=== PATIENT | female | born 1975 ===

== ENCOUNTER 2021-11-14 11:16 | Emergency (ER) | payer SELFPAY ==
[2021-11-15 12:22] LABS: SARS-CoV-2 PCR by NAA Not Detected (NotDetected)
== END 2021-11-14 13:46 | disposition home or self-care (01) ==
LOC: ERS 11:16
DX: J01.90 Acute sinusitis, unspecified (principal); Z20.822 Contact with and (suspected) exposure to COVID-19; Z79.899 Other long term (current) drug therapy
CPT/HCPCS: 70450; U0003; U0005